=== PATIENT | male | born 1965 | race Caucasian/White ===

== ENCOUNTER → 2017-01-09 | Outpatient (CLI) | payer MEDICAID ==
[~2017-01-09] MED LIST: APIDRA SOL100 UNIT/1; LEVEMIR FL100 UNIT/1 SUBQ; LORTAB 10-3251 EACH PO; LORTAB 7.5-5001 TAB PO; METFORMIN HCL500 M1 PO; METFORMIN PO; OPANA ER30 MG PO; OXYCONTIN PO; PERCOCET10 PO; PHENERGAN PO; STOOL SOFTENER; XANAX0.5 M1 PO; XANAX2 MG PO
--- NOTE | ~2017-01-09 | MY6 ---
[facility] A Service of [facility] & [facility] RADIOLOGY TEXT RESULTS PATIENT: EBONY FIERRO LOCATION: [facility] : 65 UNIT #: [id number] AGE: [address]: ERNESTO DAVIDSON MD SEX: M ORDER DR: [id number] [facility]. [place], [place] [address] [id number] O MR#: [id number] Acc #: [id number] NAME: EBONY FIERRO. : 1965 SEX: M STUDY DATE/TIME: 01/09/2017 12:46 UNIT: [facility] ROOM: STUDY DESCRIPTION: MY Mammogram Dx Dig Baldomero Attending Physician: Vinicio Davidson M.D. Ordering Physician: Vinicio Davidson M.D. Primary Care Physician: Vinicio Davidson M.D. MEDICAL IMAGING REPORT This report is preliminary unless electronic signature is present EXAM Bilateral digital diagnostic mammogram with CAD 01/09/2017 INDICATIONS 51-year-old male complaining of pain in the bilateral nipple area sensitive to the touch for about 2 months. No personal or family history of breast cancer. CC and MLO views of the breasts were reviewed with an approved CAD device. COMPARISON STUDIES There are no comparisons. FINDINGS Examination demonstrates prominent breast tissue in the subareolar aspects of the breasts left slightly greater than right and a flame-shaped configuration with peripheral disbursement of the soft tissue prominence most characteristic of benign bilateral gynecomastia. There is no suspicious associated mass or cluster of microcalcifications on either side. The breasts are otherwise unremarkable. No adenopathy or skin thickening. Imaging features are most characteristic of benign gynecomastia and clinical considerations should determine additional imaging at this point. If symptoms worsen or new palpable abnormality develops, the patient should return for additional imaging at that point. Findings and recommendations were discussed with the patient. He voiced understanding and agreement. IMPRESSION Imaging findings are most characteristic of benign bilateral gynecomastia. Clinical considerations to determine additional imaging at this time. See discussion above. [facility] A Service of [facility] & [facility] RADIOLOGY TEXT RESULTS PATIENT: EBONY FIERRO LOCATION: [facility] : 65 UNIT #: [id number] AGE: [address]: ERNESTO DAVIDSON MD SEX: M ORDER DR: OCTAVIAADS: 2 - Benign finding Dictated by... Gomez Atkinson M.D. THIS IS AN ELECTRONICALLY VERIFIED REPORT Gomez Atkinson M.D. at 01/09/2017 5:20 PM Jennifer TD: 01/09/2017 16:26 JOB #: [id number] MEDICAL IMAGING REPORT COPY
== END | disposition home or self-care (01) ==
LOC: CMAM 12:22
DX: N64.4 Mastodynia (principal); N62 Hypertrophy of breast
CPT/HCPCS: G0204

== ENCOUNTER → 2017-03-06 | Day surgery (SDC) | payer MEDICAID ==
--- NOTE | ~2017-03-06 | OR ---
Unit #: [id number] #: [id number] Patient: EBONY FIERRO [id number] [address] [place], [place] [address] [id number] O MR#: [id number] NAME: EBONY FIERRO. ROOM: Date of Procedure: 03/06/2017 Admission Date: 03/06/2017 Surgeon: Wang Dumont M.D. : 1965 Attending Physician: Wang Dumont M.D. Primary Care Physician: Regis Julien M.D. OPERATIVE REPORT PROCEDURE PERFORMED Colonoscopy to cecum. INDICATIONS FOR PROCEDURE A 51-year-old gentleman with average risk for colorectal cancer, here for screening colonoscopy. MEDICATIONS Monitored anesthesia. POSTOPERATIVE FINDINGS 1. Colonoscopy completed to cecum. No polyps, masses, or colitis was seen. 2. Small internal hemorrhoids. PLAN 1. High-fiber diet. Stool softeners as needed. 2. Colonoscopy in 10 years. DESCRIPTION OF PROCEDURE The patient was explained of the procedure, risks, and benefits along with risks and benefits of anesthesia. He was brought to the endoscopy room. Propofol anesthesia was given. Rectal exam was done, which was normal. Colonoscope was lubricated, passed up the rectum, advanced under direct vision all the way to the cecum. Cecum was identified by ileocecal valve and appendiceal orifice. Prep was good. No polyps, masses, or colitis was seen. Mucosa was normal and healthy. I retroflexed in the rectum, small hemorrhoids seen. Gently, the scope was pulled out. He tolerated it well. Dictated by... Karen Queen/caroline TD: 03/06/2017 22:45 JOB #: [id number] Unit #: [id number] #: [id number] Patient: EBONY FIERRO OPERATIVE REPORT Page 1 of 1 X Wang Dumont MD X PROCEDURE OPERATIVE NOTE
== END | disposition home or self-care (01) ==
LOC: COPS 11:51
DX: Z12.11 Encounter for screening for malignant neoplasm of colon (principal); K64.8 Other hemorrhoids; E11.9 Type 2 diabetes mellitus without complications; Z79.4 Long term (current) use of insulin; F41.9 Anxiety disorder, unspecified; I10 Essential (primary) hypertension
CPT/HCPCS: 82947; J3010